=== PATIENT | female | born 1995 | race Caucasian/White ===

== ENCOUNTER 2024-11-20 08:05 | Outpatient (REF) | payer BC, SELFPAY ==
[2024-11-20 10:24] LABS: MANUAL DIFF FLAG NO
[2024-11-20 10:29] LABS: Basophils Percent Auto 0.4 % (0-2); Eosinophils Absolute Auto 0.2 X10*3/uL (0.0-0.4); Eosinophils Percent Auto 3.3 % (0-4); Hematocrit 42.7 % (37.0-47.0); Hemoglobin 14.3 g/dl (12.0-16.0); Imm Gran Abs Auto 0.02 X10*3/uL (0.00-0.03); Imm Gran Pct Auto 0.3 % (0.0-0.4); Lymphocytes Absolute Auto 2.3 X10*3/uL (1.2-4.9); Lymphocytes Percent Auto 31.7 % (20-40); Mean Corpuscular HGB Conc 33.5 g/dl (31.0-35.0); Mean Corpuscular Hemoglobin 28.9 pg (27.0-33.0); Mean Corpuscular Volume 86.4 fL (80.0-98.0); Mean Platelet Volume 9.3 fL (9.4-12.3); Monocytes Absolute Auto 0.4 X10*3/uL (0.1-1.2); Monocytes Percent Auto 5.8 % (2-11); Neutrophils Absolute Auto 4.3 x10*3/uL (2.0-8.3); Neutrophils Percent Auto 58.5 % (45-73); Platelet Count 383 X10*3/uL (160-400); Red Blood Count 4.94 X10*6/uL (4.20-5.50); Red Cell Distribution Width 12.9 % (11.0-16.0); White Blood Count 7.3 X10*3/uL (4.8-10.8)
--- OUTSIDE RECORDS SUMMARY | 2024-11-20 10:49 | XMS_ITS | Encounter Summary ---
Author Organization [facility] Address [address] [place] [address] Care Team Providers Care Assistant Customer Service Manager Name Role Phone Aleyda Hu MD Primary Care Prov ider Reason for Visit * Reason Onset Date Comments prior authorization 10/30/2024 Zepbound ryan ewal Encounter Details Date Type Department Care Team (Late st Contact Info) Description 10/30/2024 Telephone Bariatric Surgery - [place] [address] [place] [phone] Luann Chacon MD [address] [place] [address] prior authorization (Zepbound renewal) Social History Tobacco Use Types Packs/Day Years Used Date Smoking Tobacco: Never Smokeless Tobacco: Never Alcohol Use Standard Drinks/Week Comments No 0 (1 standard drink = 0.6 oz pur e alcohol) Comments Unknown Sex and Gender Information Value Date Recorded Sex Assigned at Not on file Legal Sex Female 4:48 AM EST Gender Identity Not on file Sexual Orientation Not on file documented as of this encounter Progress Notes * Josette Dove - 10/30/2024 12:11 PM EDT Zepbound prior auth 10/09/23 - pharmacy is requesting updated prior auth for Zepbound 10 MG documented in this encounter Plan of Treatment Upcoming Encounters Date Type Department Care Team (Late st Contact Info) Description 01/01/2025 2:15 PM EDT Office Visit Bariatric Surgery - [place] [address] [facility] [address] [place] [address] Lurdes Kramer PA [address] [place] [address] documented as of this encounter Visit Diagnoses Not on filedocumented in this encounter Care Teams Assistant Customer Service Manager Relationship Specialty Start Date End Date Aleyda Hu MD [address] [place] [phone] PCP - General Internal Medicine 06/06/24 documented as of this encounter
--- OUTSIDE RECORDS SUMMARY | 2024-11-20 10:49 | XMS_ITS | Clinical Summary ---
Author Organization [address] [facility] Address [address] [place] [address] Phone Care Team Providers Care Ruling Technician Name Role Phone Aleyda Hu MD Primary Care Prov ider Allergies No known active allergies Medications methIMAzole (TAPAZOLE) 10 mg tablet Take 1 tablet (10 mg total) by mouth 2 (two) times a day. Active propranoloL (INDERAL) 20 mg tablet Take 1 tablet (20 mg total) by mouth. Active busPIRone (BUSPAR) 7.5 mg tablet TAKE 1 TABLET BY MOUTH TWICE A DAY 180 tablet 1 07/26/2024 Active buPROPion XL (WELLBUTRIN XL) 300 mg 24 hr tablet TAKE 1 TABLET BY MOUTH EVERY DAY IN THE MORNING 90 tablet 1 07/26/2024 Active tirzepatide, weight loss, (Zepbound) 10 mg/0.5 mL injection INJECT 0.5 ML (10 MG) UNDER THE SKIN EVERY 7 DAYS FOR 28 DAYS. 2 mL 2 10/21/2024 Active Active Problems Problem Noted Date Diagnosed Date Class 2 obesity with body ma ss index (BMI) of 35.0 to 35.9 in adult 04/29/2024 Major depressive disorder in partial remission (CMS/HCC V24) 07/28/2023 Irregular menses 12/08/2009 Acne 12/08/2009 Depressive disorder 02/20/2009 Idiopathic scoliosis and kyphoscoliosis 02/18/20 06 Encounters Date Type Department Care Team Description 11/20/2024 Telephone Adult Medicine [address] [phone] Aleyda Hu MD 10/30/2024 Telephone Bariatric Surgery [address] [phone] Luann Chacon MD prior authorization (Zepbound renewal) 10/18/2024 8:30 AM EDT Telemedicine Bariatric Surgery [address] [phone] Class 2 obesity with body mass index (BMI) of 35.0 to 35.9 in adult, unspecified obesity type, unspecified whether serious comorbidity present (Primary Dx) 10/01/2024 2:15 PM EDT Office Visit Bariatric Surgery [address] [phone] Lurdes Kramer PA Class 2 obesity due to excess calories without serious comorbidity with body mass index (BMI) of 35.0 to 35.9 in adult (Primary Dx) 09/19/2024 Telephone Bariatric Surgery [address] [phone] Luann Chacon MD Med Refill (Zepbound) from Last 3 Months Immunizations Name Administration Dates Next Due DTP 10/10/1995, 5,1994,06/09 DTaP (Infanrix) 6wks to less than 7yo 01/29/1999 [id number] (Pentacel) 2mo to less than 5yo 07/11/1995,1994,1994,06/09 HPV, Quadrivalent 01/07/2010 Hepatitis B Pediatric (Enger ix B; Recombivax HB) to less than 20 yo 1994,1994,1994 Influenza Quadravalent, MDCK , 0.5ml, preservative free (Flucelvax) 6mo and older 07/28/2023,06/30/2022 Influenza Quadravalent, MDCK , 0.5ml, with preservative (Flucelvax) 6mo and older 04/03/2017 Influenza trivalent, with pr eservative (Fluzone; Afluria) 6mo and older 07/01/2011,07/02/2010,04/22/2008 MMR, measles mumps and rubel la Live (Priorix; M-M-R II) 12mo and older 01/29/1999,05/04/1995 Meningococcal MCV4P 04/22/2008 OPV 01/29/1999 Pfizer SARS-CoV-2 COVID-19, mRNA, LNP-S, preservative free 08/05/2021 Tdap Tetanus diptheria acell ular pertussis (Boostrix; Adacel) 7yo and older 04/03/2017,02/17/2006 Varicella live (Varivax) 12m o and older 01/07/2010,04/12/1996 Surgical History Surgery Date Site/Laterality Comments OTHER SURGICAL HISTORY PROCEDURE: DENIES PREVIOUS SURGERY Medical History Medical History Date Comments Routine or child health check DX:Routine or child health check Unspecified otitis media DX:Unsp ecified otitis media Attention deficit disorder w ithout mention of hyperactivity DX:Attention deficit disorde r without mention of hyperactivity; COMMENT: MILD-EVAL WITH DR. BHAGAT 11/22 Pneumonia, organism unspecified(486) 04/25 DX:Pneumonia, organism unspecified(486) Scoliosis (and kyphoscoliosi s), idiopathic DX:Scoliosis (and kyphoscoli osis), idiopathic Family History Medical History Relation Name Comments ADD / ADHD Brother 1 Relation Name Status Comments Brother 1 Brother 2 Alive ADHD Brother 3 Alive / brother Father Alive Biological fath er healthy Mother Alive healthy Sister Alive 1/2 sister Social History Tobacco Use Types Packs/Day Years Used Date Smoking Tobacco: Never Smokeless Tobacco: Never Tobacco Cessation:Counseling Given: Not Answered Alcohol Use Standard Drinks/Week Comments No 0 (1 standard drink = 0.6 oz pur e alcohol) Comments Unknown Sex and Gender Information Value Date Recorded Sex Assigned at Not on file Legal Sex Female 4:48 AM EST Gender Identity Not on file Sexual Orientation Not on file Obstetrics History Last Filed Vital Signs Vital Sign Reading Time Taken Comments Blood Pressure 127/82 10/01/2024 2:06 PM EDT Pulse 97 10/01/2024 2:06 PM EDT Temperature - - Respiratory Rate - - Oxygen Saturation - - Inhaled Oxygen Concentration - - Weight 93 kg (205 lb) 10/18/2024 8:00 AM EDT Height 162.6 cm (5' 4 ) 10/01/2024 2:06 PM EDT Body Mass Index 35.19 10/01/2024 2:06 PM EDT Plan of Treatment Upcoming Encounters Date Type Department Care Team (Late st Contact Info) Description 01/01/2025 2:15 PM EDT Office Visit Bariatric Surgery - [place] [address] [facility] [address] [place] [phone] Lurdes Kramer PA [address] [facility] [address] [place] [address] Health Maintenance Due Date Last Done Comments HPV Vaccines (2 - 3-dose series) 02/04/2010 01/07/2010 Cervical Cancer Screening: Pap Smear 2015 Depression Screening 07/02/2022 08/27/2019 HIV Screening 07/02/2022 Hepatitis C Screening 07/02/2022 Social Influencers of Health Screening 07/02/2022 COVID-19 Vaccine ( season) 2024 08/05/2021, 12/12/2020, 11/19/2020 Influenza Vaccine (Season Ended) 2025 07/28/2023, 06/30/2022, 03/24/2020, Additional history exists DTaP,Tdap,and Td Vaccines (8 - Td or Tdap) 04/03/2027 04/03/2017, 02/17/2006, 01/29/1999, Additional history exists Cholesterol Screening (Lipid Panel) 08/02/2027 08/02/2022 Hepatitis B Vaccines Completed 1994, 1994, 1994 HIB Vaccines Completed 07/11/1995, 06/23, 1994, Additional history exists IPV Vaccines Completed 01/29/1999, 06/23, 1994, Additional history exists MMR Vaccines Completed 01/29/1999, 05/04/1995 Meningococcal ACWY Vaccine Aged Out 04/22/2008 N o longer eligible based on patient's age to complete this topic Varicella Vaccines Completed 01/07/2010, 04/12/1996 Hepatitis A Vaccines Aged Out No long er eligible based on patient's age to complete this topic Meningococcal B Vaccine Aged Out No l onger eligible based on patient's age to complete this topic Pneumococcal Vaccine: Pediatrics (0 to 5 Years) and At-Risk Patients (6 to 64 Years) Aged Out No longer eligible based on patient's age to complete this topic RSV Immunization Patients Under 20 months Aged Out No longer eligible based on patient's age to complete this topic Procedures Procedure Name Priority Date/Time Associated Diagnosis Comments LIPID PANEL Routine 08/02/2022 DEPRESSION SCREENING Routine 08/27/2019 from Last 3 Months or Most Recently Relevant to Health Maintenance Results * Lipid panel (08/02/2022) Triglycerides 0 mg/dL Comment:No interpretation Cholesterol 0 mg/dL Comment:No interpretation HDL 0 mg/dL Comment:No interpretation LDL Cholesterol 0 mg/dL Comment:No interpretation Blood Venous blood specimen / Unknown Historical Provider LAB BLOOD ORDERABLES Lola l Result * Depression Screening (08/27/2019) Pathologist [facility] Depression Screening 12 us Historical Provider HEALTH MAINTENANCE Final Result from Last 3 Months or Most Recently Relevant to Health Maintenance Insurance [facility] Care Teams Ruling Technician Relationship Specialty Start Date End Date Aleyda Hu MD [address] [place] [phone] PCP - General Internal Medicine 06/06/24
--- OUTSIDE RECORDS SUMMARY | 2024-11-20 10:49 | XMS_ITS | Encounter Summary ---
Author Organization [facility] Address [address] [place] [address] Care Team Providers Care Wind Development Director Name Role Phone Aleyda Hu MD Primary Care Prov ider Encounter Details Date Type Department Care Team (Late st Contact Info) Description 11/20/2024 Telephone Adult [address] [phone] Aleyda Hu MD [address] [place] [address] Social History Tobacco Use Types Packs/Day Years [...] as of this encounter Progress Notes * Jodie Hughes - 11/20/2024 10:00 AM EDT What insurance does the patient have today? Payor: [email or web address] Referrals cannot be processed if the insurance is not accurate. If the insurance listed above is NO BILLING INFORMATION FOUND FOR THIS ENCOUNTER then the patients correct insurance must be obtainedand registered in [facility] or their referral can not be processed. Name of person calling to request this referral? Jordyn Referred To Provider (Include first and last name): Dr Monaco NPI (if known): [id number] Order/Specialty requested rheumatology Chief Complaint (Note: This is not a body part or a procedure): M41.20 Has the patient seen provider for this problem/Dx before? no Referred To Provider Address: [address] [place] [address] dr Bruce BRIONES Referred To Provider Referred To Provider Does patient have an appointment scheduled?: yes If yes, what is the date of the appointment?: 11/20/2024 Is this a retro request? yes Number of visits requested: 8 Is this appointment related to: MVA or worker compensation? no documented in this encounter Plan of Treatment Upcoming Encounters Date Type Department Care Team (Late st Contact Info) Description 01/01/2025 2:15 PM EDT Office Visit Bariatric Surgery - [place] [address] [place] [address] Lurdes Kramer PA [address] [place] [address] documented as of this encounter Visit Diagnoses Diagnosis Other idiopathic scoliosis, site unspecified- Primary documented in this encounter Care Teams Wind Development Director Relationship Specialty Start Date End Date Aleyda Hu MD [address] [place] [id number] PCP - General Internal Medicine 06/06/24 documented as of this encounter
[2024-11-20 11:06] LABS: Erythrocyte Sedimentation Rate 9 MM/HR (0-20)
[2024-11-20 11:13] LABS: Alanine Aminotransferase 16 U/L (0-31); Albumin Level 4.5 g/dL (3.5-5.0); Alkaline Phosphatase 68 U/L (39-117); Anion Gap 12 (12-20); Aspartate Amino Transferase 15 U/L (5-31); Bilirubin Total 0.4 mg/dL (0.0-1.0); Blood Urea Nitrogen 14 mg/dL (9-16); C Reactive Protein < 0.10 mg/dL (< or = 0.50); Calcium 9.7 mg/dL (8.4-10.2); Carbon Dioxide 25 mmol/L (22-29); Chloride 105 mmol/L (96-108); Estimated Glomerular Filt Rate > 60; Glucose Random 79 mg/dL (60-115); Potassium 3.8 mmol/L (3.3-5.1); Sodium 138 mmol/L (135-145); Total Protein 7.9 g/dL (6.5-8.0)
[2024-11-21 15:14] LABS: Calcium, Ionized 5.2 mg/dL (4.7-5.5)
[2024-11-24 23:58] LABS: Angiotensin Converting Enzyme 42 U/L (9-67)
== END 2024-11-20 08:06 | disposition home or self-care (01) ==
LOC: HO.LAB 08:05
PROVIDERS: Visit Provider Student in an Organized Health Care Education/Training Program
DX: D86.9 Sarcoidosis, unspecified (principal)
CPT/HCPCS: 36415; 80053; 82164; 82330; 85025; 85652; 86140

== ENCOUNTER 2024-11-20 08:05 | Outpatient (AMB) | payer BC, SELFPAY ==
--- NOTE | 2024-11-20 08:09 | MHC.OFFVIS ---
Vital Signs 11/20/24 08:16 Height 5 ft 4 in Weight 201 lb 8.04 oz BMI 34.6 BP 120/62 Blood Pressure Location Lt brachial Position Sitting Pulse 85 Pulse Source Pulse Oximeter Pulse Oximetry (%) 99 Oxygen Delivery Method Room Air Intake Visit Reasons: Sarcoidosis/New Patient Intake Note: Patient presents for Sarcoidosis. Allergies No Known Allergies Allergy (Verified 11/20/24 08:13) Medication List - Last Reconciled 11/20/24 by Danielle Monaco MD bupropion HCl XL (Wellbutrin XL) 300 mg PO QAM buspirone 7.5 mg PO BID methimazole 10 mg PO BID tirzepatide (weight loss) (Zepbound) mg subcut HPI Comments Details: Patient is a 29-year-old female with depression and hyperthyroidism 2/2 Graves here today for evaluation of possible sarcoidosis Patient was referred by her primary Dr. Rodgers who referred her at the request of her prefitter doors Diagnosed with graves in 2022 (about 2 years ago) after presenting with unexplained weight loss, tremors, palpitations and extreme fatigue. Diagnosed based on blood work and was intially on propanolol and methimazole. Her course has been complicated by thyroid eye disease: worsening dry eyes, red eyes, feeling of pressure behind the eyes leading to headaches and over sensitivity. Has been seeing Ophthalmology: Dr. Osmin Cruz in [facility]. Has been getting steroid eye drops to help with the irritation. Denies ever being told that she has uveitis, scleritis or iritis. Has multiple tattoos, denies any severe rash, bumps or reaction to the tattoo ink. Denies any SOB or difficulty, lymphadenopathy Has joint pain: back and knees but this is not associated with stiffness or swelling. Not persistent Denies inflammatory type joint pain Family History: Grandmother (had some thyroid issues, unsure if this was autoimmune related). Otherwise no known autoimmune family history on the maternal side. Does not know her paternal side [facility] Medical History (Updated 11/20/24 @ 08:56 by Danielle Monaco MD) Thyroid eye disease Graves disease Depressive disorder Scoliosis Irregular menses Acne Major depressive disorder Social History (Updated 11/20/24 @ 08:16 by JAMI Ramirez) Household Members: None Housing: Apartment Alcohol intake: never Patient Tobacco Use Status: Never used Tobacco Review of Systems Const Details: Review of Systems Constitutional: Denies fever, chills, weight loss ENT: Denies vision changes, eye pain or eye redness, dental caries, dry mouth GI: Denies nausea, vomiting, diarrhea, abdominal pain, change in BM Pulm: Denies SOB, HERNANDEZ, hemoptysis, wheezing Cards: Denies chest pain, palpitations Skin: Denies Raynaud's, rash, nail changes, photosensitivity, ALTERATIONS SUPERVISOR: Denies headaches, weakness, paresthesias, recurrent falls MSK: as per HPI All other systems reviewed and are unremarkable except noted above Physical Exam Vital Signs: Last Vital Signs Pulse 85 11/20/24 08:16 BP 120/62 11/20/24 08:16 Pulse Ox 99 11/20/24 08:16 Oxygen Delivery Method Room Air 11/20/24 08:16 BMI result Body Mass Index 34.6 Vital signs reviewed Physical Examination CONSTITUITIONAL Patient alert and cooperative. Well appearing and in no apparent painful distress HEENT Conjunctiva and sclera clear. ?Pupils equal round and reactive to light. ?No lymphadenopathy. ? CHEST/RESPIRATORY SYSTEM Normal respiratory effort and able to speak in complete sentences. ?Clear to auscultation bilaterally. ?No crackles, rales, rhonchi, wheezes heard. CARDIAC SYSTEM Regular rate and rhythm. ?S1 and S2 heard no murmurs. ?Radial pulses intact bilaterally MSK Hands: ?Able to make a fist. No synovitis noted to the MCPs, PIPs or DIPs. ?No tenderness to palpation of these joints. No deformities noted. ? Wrists: ?Full range of motion at the wrists without pain. ?No tenderness to palpation or synovitis noted to the wrists. Elbows: Full range of motion without pain. No tenderness, weakness, swelling, increased warmth or erythema. Shoulders: Full range of active range of motion without pain. No tenderness, weakness, swelling, increased warmth or erythema. Knees: ?Full range of motion. ?No tenderness, swelling, increased warmth or erythema.?No effusion or crepitations Ankles: Full range of motion. ?No tenderness, swelling, increased warmth or erythema.? Feet: ?Negative squeeze test. ?No tenderness to palpation or swelling of the MTPs. Tender points:?No tenderness to palpation of the bilateral trapezius, supraspinatus, greater trochanters, anterior costochondral junctions, bilateral gluteal areas, bilateral suboccipital muscle insertions SKIN Skin intact without rashes. Tattoos intact with rash Results Reviewed Results Reviewed: No results in chart Assessment & Plan Assessment & Plan (1) Bulging eyes: Code(s): H05.20 - Unspecified exophthalmos Plan: #Eye complaints Patient is a 29-year-old female with Graves disease complicated by thyroid eye disease here today for evaluation of persistent fullness behind her eye. At this time I do not think that this patient has sarcoidosis. It is unusual for sarcoidosis to cause a an increase in tissue behind the eye with a causing uveitis. In addition to this she does not have any inflammatory joint pain, respiratory symptoms, skin disease, erythema nodosum or any other prototypic elements of sarcoidosis. I discussed with the patient that it is likely that she has a thyroid eye disease and she should follow up with her primary. That being said we will check blood work and a chest x-ray looking for hilar lymphadenopathy Plan - CXR PA and Lat - Labs: CBC, CMP, ESR, CRP, LILIAM, ionized calcium - We will call patient with results Plan I spent 45 minutes reviewing the record and labs, taking a history, examining the patient, discussing the treatment plan, ordering diagnostic work up and documenting in the medical record Orders: Orders Complete Blood Count Auto Diff Today D86.9 - Sarcoidosis, unspecified C Reactive Protein Today D86.9 - Sarcoidosis, unspecified Comprehensive Met. Panel Today D86.9 - Sarcoidosis, unspecified Angiotensin Converting Enzyme Today D86.9 - Sarcoidosis, unspecified Erythrocyte Sedimentation Rate Today D86.9 - Sarcoidosis, unspecified Calcium, Ionized Today D86.9 - Sarcoidosis, unspecified XR chest 2V Today D86.9 - Sarcoidosis, unspecified Coding Level of Care Code New Pt Level 4 (66723) Diagnoses Bulging eyes H05.20
[2024-11-20 08:16] VITALS: BP 120/62; PULSE 85; O2SAT 99; BMI 34.6
== END 2024-11-20 09:04 | disposition home or self-care (01) ==
PROVIDERS: PCP Internal Medicine; Visit Provider Student in an Organized Health Care Education/Training Program
DX: H05.20 Unspecified exophthalmos (principal)
CPT/HCPCS: 99204

== ENCOUNTER 2024-11-20 09:26 | Outpatient (REF) | payer BC, SELFPAY | END 2024-11-20 09:27 | disposition home or self-care (01) | LOC: HO.LAB 09:26 | PROVIDERS: PCP Internal Medicine; Visit Provider Student in an Organized Health Care Education/Training Program | DX: Z13.89 Encounter for screening for other disorder (principal) ==